=== PATIENT | female | born 1985 | race African-American/Black ===

== ENCOUNTER 2016-11-28 13:27 | Emergency (ER) | payer MEDICAID ==
[~2016-11-28] VITALS: Ht 170.2 cm; Wt 77.1 kg
[~2016-11-28 13:27] MED LIST: ACET-1156 PO; PREN-96 PO; PRENTAB28 PO
[2016-11-28 16:45] VITALS: BP 130/88
== END 2016-11-28 17:59 | disposition home or self-care (01) ==
LOC: ER 13:27
DX: L02.213 Cutaneous abscess of chest wall (principal); Z88.8 Allergy status to other drugs, medicaments and biological substances
CPT/HCPCS: 87205

== ENCOUNTER 2019-01-04 21:44 | Emergency (ER) | payer MEDICAID ==
[~2019-01-04] VITALS: Ht 170.2 cm; Wt 83.1 kg
[2019-01-05 00:53] VITALS: BP 124/87
== END 2019-01-05 01:45 | disposition home or self-care (01) ==
LOC: ER 21:50
DX: S60.021A Contusion of right index finger without damage to nail, initial encounter (principal); Z88.8 Allergy status to other drugs, medicaments and biological substances; W20.8XXA Other cause of strike by thrown, projected or falling object, initial encounter; Y93.89 Activity, other specified; Y92.89 Other specified places as the place of occurrence of the external cause; Y99.8 Other external cause status
CPT/HCPCS: 73130; 81025

== ENCOUNTER 2020-08-15 01:42 | Emergency (ER) | payer MEDICAID ==
[~2020-08-15] VITALS: Ht 170.2 cm; Wt 95.3 kg
[2020-08-15 02:13] VITALS: BP 149/102
[2020-08-15 03:05] LABS: Urine Bacteria NONE SEEN /hpf (None Seen); Urine Blood 1+ /uL (Negative); Urine Specific Gravity 1.008 (1.001-1.035); Urine WBC 1 /hpf (0 - 5)
[2020-08-15 03:33] LABS: Basophils # (auto) 0.1 10 ^3/uL (0-0.2); Eosinophils # (auto) 0.1 10 ^3/uL (0-0.8); Hemoglobin 11.9 g/dL (12.2-16.2); Mean Corpuscular Volume 80.5 fL (80.0-100.0); Monocytes # (auto) 0.4 10 ^3/uL (0-1.3); Neutrophils # (auto) 3.9 10 ^3/uL (1.6-8.6); White Blood Cell 6.9 10^3/uL (4.4-10.8)
[2020-08-15 03:35] LABS: Basophils % (auto) 1.2 % (0.0-2.0); Eosinophils % (auto) 1.6 % (0.0-7.0); Hematocrit 35.5 % (36.0-46.0); Lymphocytes # (auto) 2.3 10 ^3/uL (0.4-5.4); Lymphocytes % (auto) 33.8 % (10.0-50.0); Mean Corpuscular Hgb Conc. 33.5 g/dL (32.0-36.0); Neutrophils % (auto) 57.4 % (37.0-80.0); Nucleated Red Blood Cells % 0.1 %; Platelet Count (auto) 376 10^3/uL (140-450); Red Blood Cells 4.41 10^6/uL (4.0-5.20); Red Cell Distribution Width 14.6 % (11.8-14.3)
[2020-08-15 03:54] LABS: Albumin 3.9 g/dL (3.4-5.0); BUN/Creatinine Ratio 9.7; Calcium 9.2 mg/dL (8.5-10.1); Potassium 3.5 mmol/L (3.5-5.1)
[2020-08-15 04:00] LABS: Bilirubin, Total 0.3 mg/dL (0.2-1.0); Total Protein 7.9 g/dL (6.4-8.2)
[2020-08-15] MEDS ORDERED: ACETAMINOPHEN 325 MG TAB PO ONE (06:45)
== END 2020-08-15 14:48 | disposition home or self-care (01) ==
LOC: ER 01:45
DX: M54.5 Low back pain (principal); R10.30 Lower abdominal pain, unspecified
CPT/HCPCS: 36415; 74176; 76830; 76856; 80053; 81001; 85025

== ENCOUNTER 2020-10-11 18:43 | Emergency (ER) | payer MEDICAID ==
[~2020-10-11] VITALS: Ht 170.2 cm; Wt 99.8 kg
[2020-10-11 21:25] VITALS: BP 132/90
[2020-10-11] MEDS ORDERED: ACETAMINOPHEN 325 MG TAB PO ONE (22:15)
[2020-10-11] MEDS ORDERED: TETANUS-DIPTH-ACEL PERTUSSIS 0.5ML SYR Tdap IM ONE (22:15)
== END 2020-10-11 22:23 | disposition home or self-care (01) ==
LOC: ER 18:44
DX: S61.012A Laceration without foreign body of left thumb without damage to nail, initial encounter (principal); Z88.6 Allergy status to analgesic agent; W26.0XXA Contact with knife, initial encounter; Y93.89 Activity, other specified; Y92.89 Other specified places as the place of occurrence of the external cause; Y99.8 Other external cause status
CPT/HCPCS: 12001; 73130; 90471; 90715

== ENCOUNTER 2022-03-22 12:05 | Emergency (ER) | payer MEDICAID ==
[~2022-03-22] VITALS: Ht 170.2 cm; Wt 86.3 kg
[2022-03-22 14:15] LABS: Urine Bacteria NONE SEEN /hpf (None Seen); Urine Blood 3+ /uL (Negative); Urine Mucus FEW (None Seen); Urine Specific Gravity 1.029 (1.001-1.035); Urine WBC 10 /hpf (0 - 5)
[2022-03-22] MEDS ORDERED: CYCL-837 PO ×2 (15:59→16:05)
[2022-03-22] MEDS ORDERED: SULF800T7 PO ×2 (15:59→16:05)
[2022-03-22] MEDS ORDERED: ACET-1158 PO ×2 (15:59→16:05)
[2022-03-22] MEDS ORDERED: cefTRIAXone SOD 1,000 MG VL IM ONE (16:00)
[2022-03-22] MEDS ORDERED: MORPHINE SULFATE INJ 2 MG/ml SYRG IM ONE (16:00)
[2022-03-22] MEDS ORDERED: ONDANSETRON ODT 4 MG TAB PO ONE (16:00)
[2022-03-22 16:21] VITALS: BP 143/88
== END 2022-03-22 17:09 | disposition home or self-care (01) ==
LOC: EDBD 12:05 → ER 12:05
DX: N39.0 Urinary tract infection, site not specified (principal); Z32.02 Encounter for pregnancy test, result negative; Z88.6 Allergy status to analgesic agent
CPT/HCPCS: 74176; 81001; 81025; 96372; 99284; J0696; J2270; Q0162